=== PATIENT | female | born 1995 | race Caucasian/White ===

== ENCOUNTER 2017-10-12 20:29 | Emergency (ER) | payer SELFPAY ==
[2017-10-12 22:14] LABS: APPEARANCE,URINE CLEAR; BILIRUBIN,URINE NEGATIVE (NEGATIVE); COLOR,URINE STRAW; GLUCOSE, URINE NEGATIVE (NEGATIVE); KETONES,URINE NEGATIVE (NEGATIVE); LEUKOCYTE ESTERASE,URINE NEGATIVE (NEGATIVE); NITRITE,URINE NEGATIVE (NEGATIVE); PROTEIN,URINE NEGATIVE (NEGATIVE); URINE SPECIFIC GRAVITY 1.005; UROBILINOGEN,URINE NEGATIVE mg/dL (<2.0)
--- NOTE | 2017-10-12 22:32 | RADIOLOGY REPORT (SQ) ---
EXAM DESCRIPTION: U/S OB TRANSVAGINAL W/O DOP COMPLETED DATE/TIME: 10/12/2017 10:07 pm REASON FOR STUDY: vag bleed 10 week . Bleeding and cramping x1 day. COMPARISON: None. TECHNIQUE: Transvaginal static and realtime grayscale images acquired of the pelvis. Additional mitzi cted color Doppler images recorded. All images stored on PACs. bHCG: Not available. CLINICAL DATES: 9 weeks 0 days LIMITATIONS: None. FINDINGS: FETUS: ULTRASOUND EGA: 6 weeks 1 day ULTRASOUND MISTI: 06/06/2018 CRL: 3.5 mm EFW: Not applicable. FHR: No heart rate was identified. JOLYNN: Adequate amount. CERVICAL LENGTH: 2.9 cm. Closed. UTERUS: Measures 8.3 x 4.4 x 4.8 cm. RIGHT ADNEXA: The right ovary measures 1.8 x 1.4 x 1.2 cm. LEFT ADNEXA: The left ovary measures 3.4 x 1.7 x 1.9 cm. FREE FLUID: None. IMPRESSION: INTRAUTERINE . ESTIMATED GESTATIONAL AGE:6 WEEKS 1 DAY. NO HEART RATE WAS IDENTIFIED AT THIS TIME. FOLLOWUP ULTRASOUND IN 7-10 DAYS RECOMMENDED TO RE- EVALUATE AND DOCUMENT A VIABLE INTRAUTERINE . Trimester of : First trimester - 0 to 13 weeks. TECHNICAL DOCUMENTATION: JOB ID: [id number] 2010 [employer]- All Rights Reserved rev-09/06 Reading location - IP/workstation name: [email or web address]
--- NOTE | 2017-10-12 22:40 | ER Document Report ---
ED General - General Chief Complaint: Vag Bleeding, +preg <12wks Stated Complaint: VAGINAL BLEEDING Time Seen by Provider: 10/12/17 22:11 Notes: Patient is a 22 year old female at approximately 10 weeks by dates presents with a small amount of vaginal bleeding. Patient reports a small amount of blood on the toilet paper when she wiped after going to the bathroom earlier. She notes an associated mild, cramping, lower abdominal pain that has since resolved. Nothing improves or worsens her symptoms. She denies similar symptoms during her previous . She has not yet established [facility] care for this . She denies any dysuria, fever or constitutional symptoms. No abdominal trauma. - Related Data Allergies/Adverse Reactions: No Known Allergies Allergy (Verified 10/12/17 22:43) Past Medical History - General Information source: Patient - Social History Smoking Status: Never Smoker Frequency of alcohol use: None Drug Abuse: None Lives with: Spouse/Significant other Family History: Reviewed & Not Pertinent Patient has suicidal ideation: No Patient has homicidal ideation: No Renal/ Medical History: Denies: Hx Peritoneal Dialysis GI Medical History: Reports: Hx Gastroesophageal Reflux Disease, Hx Ulcer Past Surgical History: Reports: Hx Appendectomy Review of Systems - Review of Systems Notes: Constitutional: Negative for fever. HENT: Negative for sore throat. Eyes: Negative for visual changes. Cardiovascular: Negative for chest pain. Respiratory: Negative for shortness of breath. Gastrointestinal: Positive for abdominal cramping Genitourinary: Positive for vaginal bleeding Musculoskeletal: Negative for back pain. Skin: Negative for rash. Neurological: Negative for headaches, weakness or numbness. 10 point ROS negative except as marked above and in HPI. Physical Exam - Vital signs Vitals: Temp Pulse Resp BP Pulse Ox 98.9 F 91 20 116/56 L 97 10/12/17 20:36 10/12/17 20:36 10/12/17 20:36 10/12/17 20:36 10/12/17 20:36 Interpretation: Normal Notes: PHYSICAL EXAMINATION: GENERAL: Well-appearing, well-nourished and in no acute distress. HEAD: Atraumatic, normocephalic. EYES: Pupils equal round and reactive to light, extraocular movements intact, sclera anicteric, conjunctiva are normal. ENT: nares patent, oropharynx clear without exudates. Moist mucous membranes. NECK: Normal range of motion, supple without lymphadenopathy LUNGS: Breath sounds clear to auscultation bilaterally and equal. No wheezes rales or rhonchi. HEART: Regular rate and rhythm without murmurs ABDOMEN: Soft, nontender, normoactive bowel sounds. No guarding, no rebound. No masses appreciated. EXTREMITIES: Normal range of motion, no pitting or edema. No cyanosis. NEUROLOGICAL: No focal neurological deficits. Moves all extremities spontaneously and on command. PSYCH: Normal mood, normal affect. SKIN: Warm, Dry, normal turgor, no rashes or lesions noted. Course - Re-evaluation Re-evalutation: 10/12/17 22:38 Patient presents with a mild amount of vaginal bleeding in the setting of a first trimester . Ultrasound does show an intrauterine although no heart rate at this time. No active bleeding at time of presentation. She is Rh positive. Patient's abdominal exam is otherwise benign without any focal tenderness. I do not suspect an acute appendicitis, pyelonephritis, cystitis, or bowel obstruction. At this time will discharge with return precautions and follow-up recommendations. I have informed patient that she will require a repeat ultrasound to establish viability of this . Verbal discharge instructions given a the bedside and opportunity for questions given. Medication warnings reviewed. Patient is in agreement with this plan and has verbalized understanding of return precautions and the need for primary care follow-up in the next 24-72 hours. - Vital Signs Vital signs: Temp Pulse Resp BP Pulse Ox 98.8 F 67 16 111/54 L 99 10/12/17 23:00 10/12/17 23:00 10/12/17 23:00 10/12/17 23:00 10/12/17 23:00 - Laboratory Laboratory results interpreted by me: 10/12/17 10/12/17 21:36 22:06 Beta HCG, Quant 58025.00 H Urine Blood SMALL H - Diagnostic Test Radiology reviewed: Reports reviewed Discharge - Discharge Clinical Impression: Hemorrhage, , early, Abdominal pain affecting Condition: Good Disposition: HOME, SELF-CARE Additional Instructions: Your ultrasound today shows an intrauterine but no heart rate at this time. You need a repeat ultrasound within the next 1 we to establish the viability of this . Please follow closely with your primary care OB/ HEAD SAMPLER. Please return if you develop severe abdominal pain, bleeding that goes through more than 2 pads for more than 2 hours, pass out, or have any other symptoms that are concerning to you. Please follow-up closely with your OBGYN regarding todays visit. Referrals: MANDY ANTONIO MD [ACTIVE STAFF] - Follow up as needed
[2017-10-12 23:13] VITALS: BP 111/54
== END 2017-10-12 23:13 | disposition home or self-care (01) ==
LOC: ER 20:29
DX: O20.9 Hemorrhage in early pregnancy, unspecified (principal); R10.30 Lower abdominal pain, unspecified; Z3A.10 10 weeks gestation of pregnancy
CPT/HCPCS: 36415; 76817; 81001; 84702; 86900; 86901; 99284